=== PATIENT | female | born 1970 | race Hispanic/Latino ===

== ENCOUNTER 2017-12-21 14:09 | Emergency (ER) | payer SELFPAY ==
[~2017-12-21 14:09] MED LIST: MULTIVITAMI1 OR
== END 2017-12-21 14:27 | disposition left against medical advice (07) | DRG 951 ==
LOC: ED 14:09 → LWOBS 14:27
DX: Z91.19 Patient's noncompliance with other medical treatment and regimen (principal)

== ENCOUNTER 2022-06-22 21:10 | Emergency (ER) | payer OTHER ==
[~2022-06-22] VITALS: Ht 160 cm; Wt 74.0 kg
[~2022-06-22 21:10] MED LIST changes: +ALL DAY ALLG10 MG PO; +LISINOPRIL5 MG PO; +METFORMIN500 M2 PO; +PROAIR HFA IN; +TRESIBA100 UNIT/M SC; +VICTOZA18 MG/3 ML SC
[2022-06-23] MEDS ORDERED: AMOX/K CLAV875 M1 PO (01:35)
[2022-06-23 02:18] VITALS: BP 123/66
== END 2022-06-23 02:18 | disposition home or self-care (01) | DRG 605 ==
LOC: ED 21:10
DX: S70.271A Other superficial bite of hip, right hip, initial encounter (principal); E11.9 Type 2 diabetes mellitus without complications; I10 Essential (primary) hypertension; W54.0XXA Bitten by dog, initial encounter; Y92.009 Unspecified place in unspecified non-institutional (private) residence as the place of occurrence of the external cause; Z79.84 Long term (current) use of oral hypoglycemic drugs; Z79.4 Long term (current) use of insulin

== ENCOUNTER 2023-02-28 04:50 | Emergency (ER) | payer OTHER ==
[~2023-02-28] VITALS: Ht 160 cm; Wt 82.0 kg
[2023-02-28] VITALS (15 sets, daily range): BP systolic 115–146; BP diastolic 49–75
[~2023-02-28 04:50] MED LIST changes: +AMOX/K CLAV875 M1 PO; +VOLTAREN - GENE75 MG PO
[2023-02-28] MEDS ORDERED: CARAFATE1 GM PO (05:09)
[2023-02-28] MEDS ORDERED: TIZANIDINE4 MG PO (05:11)
[2023-02-28] MEDS ORDERED: VOLTAREN75 MG PO (05:12)
[2023-02-28] MEDS ORDERED: MELOXICAM7.5 MG PO (05:12)
[2023-02-28 06:09] LABS: BASO% 0.3 % (0-3); EOS% 2.7 % (0-8); HEMATOCRIT 35.9 % (37.0-47.0); HEMOGLOBIN 11.3 g/dl (12.0-16.0); IMMATURE GRANULOCYTES 0.3 % (0.0-5.0); LYMPH% 26.8 % (15-41); MEAN CORPUSCULAR HGB 28.5 pG CALC (26.0-32.0); MEAN CORPUSCULAR HGB CONC 31.5 g/dL CAL (32.0-36.0); MONO% 6.6 % (2-13); NEUT# 4.42 thou/uL (2.00-7.15); NEUT% 63.3 % (42-76); RED BLOOD COUNT 3.97 mill/uL (4.20-5.60); RED CELL DISTRI WIDTH 13.7 % (11.5-15.5)
[2023-02-28 06:14] LABS: MEAN CELL VOLUME 90.4 fL CALC (80.0-100.0)
[2023-02-28 06:21] LABS: ALBUMIN 3.6 g/dL (3.2-5.0); ALKALINE PHOSPHATASE 123 u/l (38-126); AMYLASE 69 u/l (30-110); BILIRUBIN, TOTAL 0.4 mg/dL (0.02-1.3); BUN 28 mg/dL (7-17); BUN/CREATININE RATIO 27 (12-20 (CALC)); CHLORIDE 109 mmol/l (95-108); GFR FOR AFR.AMER. > 60 ML/MIN (>=60 (CALC)); GFR OTHER RACES 58 ML/MIN (>=60 (CALC)); LIPASE 272 u/l (23-300); POTASSIUM 4.2 mmol/l (3.5-5.1); SGOT/AST 20 u/l (14-36); SODIUM 140 mmol/l (137-146); TOTAL PROTEIN 6.8 g/dL (6.3-8.2)
[2023-02-28 06:25] LABS: ANION GAP 18 (6-22 (CALC)); CARBON DIOXIDE 17 mmol/l (22-30)
[2023-02-28] MEDS ORDERED: PROTONIX40 MG PO (08:35)
== END 2023-02-28 08:50 | disposition home or self-care (01) ==
LOC: ED 04:50
PROVIDERS: Family Medicine
DX: K29.00 Acute gastritis without bleeding (principal); S29.012A Strain of muscle and tendon of back wall of thorax, initial encounter; I10 Essential (primary) hypertension; E11.9 Type 2 diabetes mellitus without complications; X58.XXXA Exposure to other specified factors, initial encounter; Z79.84 Long term (current) use of oral hypoglycemic drugs
CPT/HCPCS: Q9967; S0164

== ENCOUNTER 2023-09-26 06:54 | Day surgery (SDC) | payer OTHER ==
[~2023-09-26] VITALS: Ht 160 cm; Wt 72.6 kg
[~2023-09-26 06:54] MED LIST changes: +CARAFATE1 GM PO; +JARDIANCE10 MG; +MELOXICAM7.5 MG PO; +OZEMPIC 8 MG/3M1 INJ; +PROTONIX40 MG PO; +TIZANIDINE4 MG PO; +VOLTAREN75 MG PO
[2023-09-26] MEDS ORDERED: STERILE WATER FOR IRRIGATION 1,000 ML BTL IR ONE (07:03)
[2023-09-26] MEDS ORDERED: OMEPRAZOLE DR40 MG PO (07:07)
[2023-09-26] MEDS ORDERED: TRAMADOL HYDROC50 M1 PO (07:09)
[2023-09-26] MEDS ORDERED: MECLIZINE25 MG PO (07:13)
[2023-09-26] MEDS ORDERED: SODIUM CHLORIDE 0.9% 1,000 ML IV ONE (07:17)
[2023-09-26] MEDS ORDERED: FAMOTIDINE 10MG/ML 2ML SDV IV ONE (07:17)
[2023-09-26 08:12] VITALS: BP 116/62
[2023-09-26] MEDS ORDERED: PROPOFOL 200 MG/20 ML VIAL IV ONE (15:12)
[2023-09-26] MEDS ORDERED: GLYCOPYRROLATE 0.2 MG/ML IV ONE (15:12)
[2023-09-26] MEDS ORDERED: LIDOCAINE HCL 2% 2ML SDV IV ONE (15:12)
== END 2023-09-26 08:23 | disposition home or self-care (01) | DRG 392 ==
LOC: ENDO 06:54 → ORM 15:30
PROVIDERS: ATTEND Internal Medicine Gastroenterology
PROC: 0DB48ZX Excision of Esophagogastric Junction, Via Natural or Artificial Opening Endoscopic, Diagnostic (ICD-10-PCS; principal; 2023-09-26)
PROC: 0DB78ZX Excision of Stomach, Pylorus, Via Natural or Artificial Opening Endoscopic, Diagnostic (ICD-10-PCS; 2023-09-26)
DX: K29.50 Unspecified chronic gastritis without bleeding (principal); K22.70 Barrett's esophagus without dysplasia; K31.89 Other diseases of stomach and duodenum; E11.22 Type 2 diabetes mellitus with diabetic chronic kidney disease; I12.9 Hypertensive chronic kidney disease with stage 1 through stage 4 chronic kidney disease, or unspecified chronic kidney disease; N18.9 Chronic kidney disease, unspecified; J45.909 Unspecified asthma, uncomplicated; K21.9 Gastro-esophageal reflux disease without esophagitis; N28.1 Cyst of kidney, acquired; Z91.040 Latex allergy status

== ENCOUNTER 2023-11-20 22:10 | Emergency (ER) | payer OTHER ==
[~2023-11-20] VITALS: Ht 160 cm; Wt 68.0 kg
[~2023-11-20 22:10] MED LIST changes: +MECLIZINE25 MG PO; +OMEPRAZOLE DR40 MG PO; +TRAMADOL HYDROC50 M1 PO
[2023-11-20] MEDS ORDERED: KETOROLAC TROMETHAMINE 30 MG/ML SDV IM ONE (23:00)
[2023-11-20] MEDS ORDERED: PROMETHAZINE HCL 25 MG/ML AMP IM ONE (23:00)
[2023-11-20] MEDS ORDERED: HYDROmorphone HCL 2 MG/AMP IM ONE (23:00)
[2023-11-20] MEDS ORDERED: cloNIDine HCL 0.1 MG/TAB PO ONE (23:05)
[2023-11-20 23:29] VITALS: BP 144/87
== END 2023-11-20 23:36 | disposition home or self-care (01) | DRG 552 ==
LOC: ED 22:10
DX: M54.2 Cervicalgia (principal); M54.50 Low back pain, unspecified; G89.29 Other chronic pain; I10 Essential (primary) hypertension; E11.9 Type 2 diabetes mellitus without complications; Z79.84 Long term (current) use of oral hypoglycemic drugs; Z79.4 Long term (current) use of insulin

== ENCOUNTER 2023-12-12 06:38 | Day surgery (SDC) | payer OTHER ==
[~2023-12-12] VITALS: Ht 160 cm; Wt 69.9 kg
[2023-12-12] MEDS ORDERED: FAMOTIDINE 10MG/ML 2ML SDV IV ONE (06:46)
[2023-12-12] MEDS ORDERED: SODIUM CHLORIDE 0.9% 1,000 ML IV ONE (06:46)
[2023-12-12] MEDS ORDERED: STERILE WATER FOR IRRIGATION 1,000 ML BTL IR ONE (06:57)
[2023-12-12] MEDS ORDERED: STERILE WATER 3,000 ML IV ONE (07:08)
[2023-12-12 08:02] VITALS: BP 99/51
[2023-12-12] MEDS ORDERED: LIDOCAINE HCL 2% 2ML SDV IV ONE (13:04)
[2023-12-12] MEDS ORDERED: PROPOFOL 200 MG/20 ML VIAL IV ONE (13:04)
[2023-12-12] MEDS ORDERED: GLYCOPYRROLATE 0.2 MG/ML IV ONE (13:04)
== END 2023-12-12 08:16 | disposition home or self-care (01) | DRG 951 ==
LOC: ENDO 06:38
PROVIDERS: ATTEND Internal Medicine Gastroenterology
PROC: 0DJD8ZZ Inspection of Lower Intestinal Tract, Via Natural or Artificial Opening Endoscopic (ICD-10-PCS; principal; 2023-12-12)
DX: Z12.11 Encounter for screening for malignant neoplasm of colon (principal); K22.70 Barrett's esophagus without dysplasia; K21.9 Gastro-esophageal reflux disease without esophagitis